=== PATIENT | male | born 1950 | race American Indian/Alaskan Native ===

== ENCOUNTER 2018-09-09 15:19 | Emergency (ER) | payer MEDICARE | END 2018-09-09 16:03 | disposition left against medical advice (07) | LOC: ED 15:19 | DX: Z02.89 Encounter for other administrative examinations (principal); Z00.00 Encounter for general adult medical examination without abnormal findings ==

== ENCOUNTER 2018-09-09 15:51 | Outpatient (CLI) | payer MEDICARE | END 2018-09-09 15:52 | disposition home or self-care (01) | LOC: RAD 15:51 ==

== ENCOUNTER 2018-11-19 14:51 | Emergency (ER) | payer MEDICARE ==
[2018-11-19 14:57] VITALS: BMI 22.6
[2018-11-19 15:01] VITALS: RESP 18; TEMP 98.3
--- NOTE | 2018-11-19 15:52 | ED PDOC ---
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 Patient report she was eating rice and meat sauce when he began feeling this discomfort. Patient reports yesterday his mouth was very dry. He reports bleeding from the mass, but denies any fever, chills, chest pain, shortness of breath, nausea, vomiting, diarrhea, urinary symptoms, back pain, neck pain, headache, dizziness, or any other complaints. 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 Time/Duration: Other (2 hours) Symptom Onset: Sudden Symptom Course: Unchanged Activities at Onset: Light Context: Home Past Medical History - Provider Review Nursing Documentation Reviewed: Yes - Infectious Disease Hx of Infectious Diseases: None - Cardiac Hx Hypertension: Yes - Psychiatric Hx Substance Use: No Family/Social History - Physician Review Nursing Documentation Reviewed: Yes Family/Social History: No Known Family HX Smoking Status: Never Smoked Hx Alcohol Use: No Hx Substance Use: No Allergies/Home Meds Allergies/Adverse Reactions: Allergies No Known Allergies Allergy (Verified 11/19/18 16:51) Review of Systems - Physician Review All systems were reviewed & negative as marked: Yes - Review of Systems Constitutional: absent: Fevers, Other (chills) ENT: Other (mass to the roof of the mouth) Respiratory: absent: SOB Cardiovascular: absent: Chest Pain Gastrointestinal: absent: Diarrhea, Nausea, Vomiting Genitourinary Male: absent: Dysuria, Frequency, Hematuria Musculoskeletal: absent: Back Pain, Neck Pain Neurological: absent: Headache, Dizziness Physical Exam - Physical Exam Narrative Physical Exam (Text): Gen: VS reviewed, alert, well developed, well nourished, nontoxic, mild distress. ENT: Soft tissue mass appears hemorrhagic soft with a central ulceration and minimal bleeding. Approximately 2cm in its widest diameter. normal pharynx. Eye: EOMI, PERRL. Neck: no JVD, supple, no adenopathy. CV: regular rate, regular rhythm, no rubs, no murmur, no gallops, S1, S2, pulses equal and strong. Pulm: no distress, clear to auscultation, no wheeze, no rhonchi, breath sounds equal, no rales. Abd: soft, nontender, no guarding, no rebound, no rigidity, normal bowel sounds. Ext: no edema. Skin: good color, no rash, no cyanosis. Psych: responds appropriately to questions, normal affect. Neuro: oriented x 3, CN2-12 intact grossly, motor intact, sensation intact. Vital Signs Reviewed: Yes Vital Signs Temp Pulse Resp BP Pulse Ox 11/19/18 14:51 98.3 F 84 18 151/55 H 100 Temperature: Afebrile Blood Pressure: Normal Pulse: Regular Respiratory Rate: Normal Medical Decision Making ED Course and Treatment: 11/19/18 15:47 Impression: 68 year old male presents complaining of sudden mass to the roof of the mouth after eating rice and meat sauce 2 hours prior to arrival. Plan: -- ENT consult -- Reassess and disposition Progress Notes: 11/19/18 15:50 Case discussed with ENT transmission specialist who is aware and agrees to come in and evaluate patient. 11/19/18 17:28 patient seen and examined by dr. ceja, ENT, recommends medrol dose chantelle, gauze packing, hold aspirin/motrin, follow up in office on wednesday. - Scribe Statement The provider has reviewed the documentation as recorded by the Ruby Hopper Provider Scribe Attestation: All medical record entries made by the Scribe were at my direction and personally dictated by me. I have reviewed the chart and agree that the record accurately reflects my personal performance of the history, physical exam, medical decision making, and the department course for this patient. I have also personally directed, reviewed, and agree with the discharge instructions and disposition. Disposition/Present on Arrival - Present on Arrival Any Indicators Present on Arrival: No History of DVT/PE: No History of Uncontrolled Diabetes: No Urinary Catheter: No History of Decub. Ulcer: No History Surgical Site Infection Following: None - Disposition Have Diagnosis and Disposition been Completed?: Yes Diagnosis: Hematoma Disposition: HOME/ ROUTINE Disposition Time: 17:29 Patient Plan: Discharge Condition: STABLE Additional Instructions: follow up with the specialist, janusz strong, in the office on wednesday. call [phone] the [address] is [address] [place] [address] [address], nan biwo a lendi. rele [phone] [address] [place] [address] Prescriptions: Methylprednisolone [Medrol Dose Pack (21 tabs)] 4 mg PO DAILY #21 mg Referrals: FAMILY PROVIDER,NO [Primary Care Provider] - Follow up with primary Leonel Ceja DO [Staff Provider] - Follow up with primary Forms: [employer] (Italian), WORK NOTE
[2018-11-19 17:53] VITALS: BP 142/78; PULSE 80; O2SAT 98
--- NOTE | 2018-11-20 00:18 | CON ---
DATE: 11/19/2018 HISTORY OF PRESENT ILLNESS: This 68-year-old male is seen in room 19 in the ER. The patient was admitted this afternoon after 2 hours prior a large left-sided oral lump occurred with noted discomfort and slight bleeding. INDICATIONS: The patient states that he was home that he had a meal of rice and meat sauce, at which time he denied any type of burning or trauma, but a left-sided lump occurred. It started to swell and it started to mildly bleed. The patient came to the hospital and on physical exam, no adenopathy is noted. Oral exam noted to be healthy left soft palate, laterally a 1 to 1.2 cm hemangioma or pemphigus like ulcer or swelling was noted. It was spontaneously decompressed and a slight ooze. The patient was holding a sterile gauze to the site and noted some relief with saline. The patient has only hypertensive history, has been recently on aspirin and Motrin. The patient denies smoking and/or alcohol. A 1.2 to 2 cm mass on physical exam. VITAL SIGNS: 98,3, 84, 18 and 151/55. FAMILY AND SOCIAL HISTORY: The patient denies any family history, smoking or alcohol. ASSESSMENT AND PLAN: The patient is seen with his in bed and is very pleasantly comfortable. It was discussed with the patient to be placed on a steroid for possible allergic type reaction or pemphigus reaction. The patient will do saline gargles, increase water and we have advised not to take any type of aspirin or NSAIDs. The patient will follow up in the 24 to 48 hours in the office of Dr. Leonel Ceja, address and phone number given to the family. The patient's case was discussed with the ER physician. The patient was then discharged and as stated, will follow up in 24 to 48 hours in the office. Leonel Ceja DO [email or web address]
== END 2018-11-19 17:53 | disposition home or self-care (01) ==
LOC: ED 14:51
DX: S00.532A Contusion of oral cavity, initial encounter (principal); X58.XXXA Exposure to other specified factors, initial encounter; E78.00 Pure hypercholesterolemia, unspecified; I10 Essential (primary) hypertension